=== PATIENT | female | born 2000 | race Caucasian/White ===

== ENCOUNTER 2019-07-05 12:07 | Emergency (ER) | payer OTHER ==
[~2019-07-05] VITALS: Ht 167.6 cm; Wt 127.0 kg
[2019-07-05] MEDS ORDERED: TESSALON PERLE100 M1 PO (12:47)
[2019-07-05] MEDS ORDERED: FLONASE ALLERG9.9 ML NAS (12:47)
[2019-07-05] MEDS ORDERED: SEPTDS PO (12:47)
== END 2019-07-05 12:58 | disposition home or self-care (01) ==
LOC: ED 12:07
DX: J32.9 Chronic sinusitis, unspecified (principal); Z88.0 Allergy status to penicillin

== ENCOUNTER 2021-03-18 23:20 | Emergency (ER) | payer OTHER ==
[~2021-03-18 23:20] MED LIST: FLONASE ALLERG9.9 ML NAS; SEPTDS PO; TESSALON PERLE100 M1 PO
[2021-03-19] MEDS ORDERED: NAPROSYN500 MG PO (00:29)
== END 2021-03-19 01:25 | disposition home or self-care (01) ==
LOC: ED 23:20
DX: M25.562 Pain in left knee (principal); M79.89 Other specified soft tissue disorders; Z88.0 Allergy status to penicillin

== ENCOUNTER → 2021-04-07 | Outpatient (CLI) | payer OTHER ==
[~2021-04-07] MED LIST changes: +NAPROSYN500 MG PO
[2021-04-07 13:02] LABS: ALBUMIN 3.2 gm/dl (3.1-4.5); ALKALINE PHOSPHATASE 86 U/L (45-117); BUN 13 mg/dl (7-24); CHLORIDE 111 mmol/L (98-107); CHOLESTEROL 166 mg/dL (<200); GAMMA GLUTAMYL TRANSPEPTIDASE 47 U/L (5-55); IRON 27 ug/dL (50-170); LDL CHOLESTEROL 100 mg/dL (9-159); POTASSIUM 3.8 mmol/L (3.5-5.1); SGOT/AST 8 IU/L (3-35); SGPT/ALT 22 U/L (12-78); SODIUM 139 mmol/L (136-145); T3 UPTAKE 38 % (31-39); THYROXINE (T4) TOTAL 8.1 ug/dl (4.8-13.9); TOTAL PROTEIN 7.8 gm/dL (6.4-8.2); TRIGLYCERIDES 110 mg/dl (<150)
[2021-04-07 13:03] LABS: TOTAL IRON BINDING CAPACITY 254 ug/dl (250-450)
[2021-04-07 13:05] LABS: BASO % 0.3 % (0.0-1.0); EOS # 0.1 10*3/uL (0.0-0.4); EOS % 0.8 % (1.0-4.0); HEMATOCRIT 38.9 % (37.0-47.0); LYMPH # 2.2 10*3/uL (1.3-4.4); LYMPH % 14.5 % (27.0-41.0); MEAN CELL VOLUME 85.9 fl (81.0-99.0); MEAN CORPUSCULAR HGB CONC 32.6 g/dl (33.0-37.0); MONO # 0.8 10*3/uL (0.1-1.0); MONO % 5.6 % (3.0-9.0); NEUT # 11.6 10*3/uL (2.3-7.9); NEUT % 78.5 % (47.0-73.0); PLATELET COUNT AUTOMATED 528 10*3/uL (130-400); RED BLOOD COUNT 4.53 10*6/uL (4.10-5.10); RETICULOCYTE % 1.63 % (0.50-2.50); WHITE BLOOD COUNT 14.8 10*3/uL (4.8-10.8)
[2021-04-07 13:07] LABS: BILIRUBIN Negative (Negative); BLOOD 2+ (Negative); CLARITY Clear (Clear); COLOR Yellow (Yellow); GLUCOSE Negative (Negative); KETONE Negative (Negative); LEUKO ESTERASE Trace (Negative); NITRITE Negative (Negative); SPECIFIC GRAVITY 1.025 (1.001-1.030)
[2021-04-07 13:10] LABS: URIC ACID 3.8 mg/dL (2.6-6.0)
[2021-04-07 13:11] LABS: FERRITIN 131.5 ng/mL (10.0-291.0); VITAMIN D, 25-HYDROXY 21.6 ng/mL (30-100)
[2021-04-07 13:14] LABS: BACTERIA TRACE; MUCOUS TRACE
[2021-04-08 04:06] LABS: RHEUMATOID ARTHRITIS FACTOR <10.0 IU/mL (0.0-13.9)
[2021-04-08 15:07] LABS: ANTI-DSDNA ANTIBODIES 1 IU/mL (0-9)
== END | disposition home or self-care (01) ==
LOC: LAB 12:11
PROVIDERS: ATTEND Family Medicine
DX: E55.9 Vitamin D deficiency, unspecified (principal); R79.89 Other specified abnormal findings of blood chemistry; R53.83 Other fatigue; R74.8 Abnormal levels of other serum enzymes

== ENCOUNTER → 2021-04-27 | Outpatient (CLI) | payer OTHER ==
[2021-04-27 12:44] LABS: HEMATOCRIT 40.7 % (37.0-47.0); MEAN CELL VOLUME 86.6 fl (81.0-99.0); MEAN CORPUSCULAR HGB 27.9 pg (27.0-31.0); MEAN CORPUSCULAR HGB CONC 32.2 g/dl (33.0-37.0); MEAN PLATELET VOLUME 9.5 fl (9.6-12.3); PLATELET COUNT AUTOMATED 437 10*3/uL (130-400); RED CELL DISTRI WIDTH 14.4 % (0-14.5); RETICULOCYTE % 1.65 % (0.50-2.50); WHITE BLOOD COUNT 10.4 10*3/uL (4.8-10.8)
[2021-04-27 13:04] LABS: IRON 42 ug/dL (50-170); TOTAL IRON BINDING CAPACITY 238 ug/dl (250-450)
[2021-04-27 13:31] LABS: BASOPHILS 1 % (0-1); TOTAL CELLS COUNTED 100 #CELLS
[2021-04-27 13:32] LABS: PLATELET SUFFICIENCY HIGH (NORMAL)
[2021-04-28 11:06] LABS: TOTAL PROTEIN, SERUM 6.8 g/dL (6.0-8.5)
[2021-04-28 14:07] LABS: ALBUMIN 3.4 g/dL (2.9-4.4); ALPHA-1-GLOBULIN 0.3 g/dL (0.0-0.4); ALPHA-2-GLOBULIN 0.8 g/dL (0.4-1.0); BETA GLOBULIN 1.2 g/dL (0.7-1.3); GAMMA GLOBULIN 1.2 g/dL (0.4-1.8); GLOBULIN, TOTAL 3.4 g/dL (2.2-3.9); M-SPIKE Not Observed g/dL (Not Observed)
== END | disposition home or self-care (01) ==
LOC: LAB 12:08
PROVIDERS: ATTEND Family Medicine
DX: R79.89 Other specified abnormal findings of blood chemistry (principal); R53.83 Other fatigue